=== PATIENT | male | born 1940 | race Caucasian/White ===

== ENCOUNTER 2017-06-23 15:56 | Emergency (ER) | payer MEDICARE ==
[2017-06-23] MEDS ORDERED: ASPIRIN PO ONE (16:08)
[2017-06-23 18:03] LABS: Hematocrit 51.5 % (35.5-45.6); Hemoglobin 17.2 gm/dl (11.8-15.2); Mean Corpuscular HGB Conc 33 % (32-34); Mean Corpuscular Hemoglobin 29 pg (28-32); Mean Corpuscular Volume 86 fl (84-94); Platelet Count 162 K/mm3 (140-440); Red Cell Distribution Width 14.3 % (13.2-15.2)
[2017-06-23 18:06] LABS: BUN/Creatinine Ratio 18; Blood Urea Nitrogen 11 mg/dL (9-20); Calcium 8.8 mg/dL (8.4-10.2); Hemolysis Index 66
--- NOTE | 2017-06-23 19:17 | Emergency Department Report ---
Blank Doc - Documentation Documentation: 76-year-old male with past medical history Parkinson's came in complaining of left-sided chest pain for 2 days. Per patient's he's had chest pain since yesterday on and off nonradiating. Patient denies any nausea vomiting shortness of breath. She denies any fever or chills. plan: -bloodwork, troponin, cxr -transfer to acute side -possible admission to hospital
--- NOTE | 2017-06-23 20:42 | XRay Report ---
FINAL REPORT PROCEDURE: XR CHEST 1V AP TECHNIQUE: Chest radiograph anteroposterior view. CPT 03037 HISTORY: chest pain COMPARISON: No prior studies are available for comparison. FINDINGS: Heart: Normal. Mediastinum/Vessels: Normal. Lungs/Pleural space: Normal. Bony thorax: No acute osseous abnormality. Life support devices: None. IMPRESSION: No acute cardiopulmonary abnormality.
[2017-06-23] MEDS ORDERED: ASPIRIN ONE (20:45)
--- NOTE | 2017-06-23 23:07 | Cat Scan Report ---
FINAL REPORT PROCEDURE: CT ANGIO CHEST TECHNIQUE: Computerized tomographic angiography of the chest was performed after the IV injection of iodinated nonionic contrast including image processing. The image data was postprocessed using 2-dimensional multiplanar reformatted (MPR) and 3-dimensional (MIP and/or volume rendered) techniques. HISTORY: elevated d dimer COMPARISON: No prior studies are available for comparison. FINDINGS: Heart and pericardium: Normal. Thoracic aorta: Normal. Pulmonary vasculature: There is no evidence of pulmonary arterial emboli. Lymph nodes: No enlarged thoracic lymph nodes. Lungs: The lungs are clear without infiltrate, effusion or pneumothorax. The central airway is patent. Pleural space: No effusion, thickening, or pneumothorax. Musculoskeletal structures: No significant abnormality. Upper abdominal structures: No significant abnormality. IMPRESSION: There is no evidence of pulmonary arterial emboli. The lungs are clear without infiltrate, effusion or pneumothorax.
--- NOTE | 2017-06-24 00:08 | Emergency Department Report ---
ED General Adult HPI - General Chief complaint: Chest Pain Stated complaint: CHEST PAIN/SHAKING Time Seen by Provider: 06/23/17 18:58 Source: patient Mode of arrival: Ambulatory Limitations: No Limitations - History of Present Illness Initial comments: Patient presents to the emergency department for complaint of chest pain and groin pain. Patient has a history of Parkinson disease. Per the patient's the patient has had chest pain for last 2 days and has been continuous in nature. Patient also has bilateral groin pain which has worsened since he started physical therapy at home. states the patient has chronic groin pain but has gotten worse. Patient denies any shortness of breath. -: Gradual Location: chest, pelvis Radiation: non-radiation Severity scale (0 -10): 2 Quality: sharp Consistency: constant Improves with: none Worsens with: none Associated Symptoms: denies other symptoms Treatments Prior to Arrival: none - Related Data Previous Rx's Medication Instructions Recorded Last Taken Type HYDROcodone/ACETAMINOPHEN [Currie 1 each PO Q6HR PRN #15 tablet 06/24/17 Unknown Rx 5-325 Tablet] Allergies Allergy/AdvReac Type Severity Reaction Status Date / Time No Known Allergies Allergy Unverified 06/23/17 16:07 ED Review of Systems ROS: Stated complaint: CHEST PAIN/SHAKING Other details as noted in HPI Comment: All other systems reviewed and negative Constitutional: denies: chills, fever Eyes: denies: eye pain, eye discharge, vision change ENT: denies: ear pain, throat pain Respiratory: denies: cough, shortness of breath, wheezing Cardiovascular: denies: chest pain, palpitations Endocrine: no symptoms reported Gastrointestinal: denies: abdominal pain, nausea, diarrhea Genitourinary: denies: urgency, dysuria Musculoskeletal: denies: back pain, joint swelling, arthralgia Skin: denies: rash, lesions Neurological: denies: headache, weakness, paresthesias Psychiatric: denies: anxiety, depression Hematological/Lymphatic: denies: easy bleeding, easy bruising ED Past Medical Hx - Past Medical History Additional medical history: Parkinson's Disease,chronic back pain,frequent falls - Surgical History Past Surgical History?: No - Social History Smoking Status: Never Smoker Substance Use Type: None - Medications Home Medications: Home Medications Medication Instructions Recorded Confirmed Last Taken Type HYDROcodone/ACETAMINOPHEN [Currie 1 each PO Q6HR PRN #15 tablet 06/24/17 Unknown Rx 5-325 Tablet] ED Physical Exam - General Limitations: No Limitations General appearance: alert, in no apparent distress, other (Parkinsonian tremor on exam) - Head Head exam: Present: atraumatic, normocephalic - Eye Eye exam: Present: normal appearance - ENT ENT exam: Present: mucous membranes moist - Neck Neck exam: Present: normal inspection - Respiratory Respiratory exam: Present: normal lung sounds bilaterally. Absent: respiratory distress - Cardiovascular Cardiovascular Exam: Present: regular rate, normal rhythm. Absent: systolic murmur, diastolic murmur, rubs, gallop - GI/Abdominal GI/Abdominal exam: Present: soft, normal bowel sounds - Rectal Rectal exam: Present: deferred - exam: Present: other (tender to palpation along the inguinal ligament). Absent: testicular tenderness, scrotal swelling - Extremities Exam Extremities exam: Present: normal inspection - Back Exam Back exam: Present: normal inspection - Neurological Exam Neurological exam: Present: alert, oriented X3 - Psychiatric Psychiatric exam: Present: normal affect, normal mood - Skin Skin exam: Present: warm, dry, intact, normal color. Absent: rash ED Course Vital Signs 06/23/17 06/23/17 06/23/17 16:00 19:25 19:30 Temperature 97.9 F 98.1 F Pulse Rate 73 93 H 104 H Respiratory 18 24 23 Rate Blood Pressure 147/80 166/82 Blood Pressure 166/82 [Left] O2 Sat by Pulse 100 100 100 Oximetry 06/23/17 06/23/17 06/23/17 20:00 20:16 20:30 Temperature Pulse Rate 91 H 100 H 88 Respiratory 24 20 20 Rate Blood Pressure 147/65 147/65 147/65 Blood Pressure [Left] O2 Sat by Pulse 99 100 99 Oximetry 06/23/17 06/23/17 20:46 21:00 Temperature Pulse Rate 92 H 99 H Respiratory 22 24 Rate Blood Pressure 157/75 166/81 Blood Pressure [Left] O2 Sat by Pulse 99 97 Oximetry ED Medical Decision Making - Lab Data Result diagrams: 06/23/17 17:20 06/23/17 17:20 - EKG Data 06/24/17 00:07 EKG shows atrial flutter. With a rate of [address]-T wave abnormalities - Medical Decision Making Discussed patient's results with his . Patient states the patient has had hydrocodone for pain in the past. Critical care attestation.: If time is entered above; I have spent that time in minutes in the direct care of this critically ill patient, excluding procedure time. ED Disposition Clinical Impression: Nonspecific chest pain, Inguinal pain of both sides Disposition: TO HOME OR SELFCARE Is pt being admited?: No Condition: Stable Instructions: Chest Pain (ED) Additional Instructions: Return if symptoms become worse Prescriptions: HYDROcodone/ACETAMINOPHEN [Currie 5-325 Tablet] 1 each PO Q6HR PRN #15 tablet PRN Reason: Pain Referrals: PRIMARY CARE, [Primary Care Provider] - 3-5 Days Time of Disposition: 00:11
[2017-06-24 00:19] VITALS: BP 154/76
== END 2017-06-24 00:48 | disposition home or self-care (01) ==
LOC: ED 15:56
DX: R07.9 Chest pain, unspecified (principal); R10.30 Lower abdominal pain, unspecified
CPT/HCPCS: 36415; 71045; 71275; 80048; 84484; 85025; 85379; 93005; 93010; 99285; Q9967

== ENCOUNTER 2017-07-06 09:57 | Outpatient (CLI) | payer MEDICARE ==
--- NOTE | 2017-07-06 10:46 | XRay Report ---
Bilateral hips with pelvis: History: Pain in hip. Findings: There is suspicion of mild arthritic changes noted at superior lateral aspect of right and left hip joint. No fracture or soft tissue calcification. No lytic or blastic lesions in the pelvis. Impression: Suspicion of mild arthritic changes at the left
== END 2017-07-06 09:58 | disposition home or self-care (01) ==
LOC: XRAY 09:57
PROVIDERS: ATTEND Internal Medicine
DX: M25.551 Pain in right hip (principal); M25.552 Pain in left hip; R10.2 Pelvic and perineal pain
CPT/HCPCS: 73521